=== PATIENT | male | born 1990 | race Hispanic/Latino ===

== ENCOUNTER → 2017-08-19 | Outpatient (CLI) | payer MEDICAID | END | disposition home or self-care (01) | LOC: RAH 10:44 | PROVIDERS: ATTEND Physical Medicine & Rehabilitation | DX: M41.85 Other forms of scoliosis, thoracolumbar region (principal) | CPT/HCPCS: 72082 ==

== ENCOUNTER → 2019-03-19 | Outpatient (CLI) | payer MEDICAID | END | disposition home or self-care (01) | LOC: OIH 11:25 | PROVIDERS: ATTEND Family Medicine | DX: K59.00 Constipation, unspecified (principal); Z93.1 Gastrostomy status | CPT/HCPCS: 74018 ==

== ENCOUNTER → 2022-09-26 | Outpatient (CLI) | payer MEDICAID | END | disposition home or self-care (01) | LOC: WHH 10:06 | PROVIDERS: ATTEND Nurse Practitioner Family | DX: L02.211 Cutaneous abscess of abdominal wall (principal); L03.319 Cellulitis of trunk, unspecified; L92.9 Granulomatous disorder of the skin and subcutaneous tissue, unspecified; G80.9 Cerebral palsy, unspecified; Z79.899 Other long term (current) drug therapy | CPT/HCPCS: 87070; 87077; 87186; 99205; A6248; A4450; A6260 ==

== ENCOUNTER → 2022-10-08 | Outpatient (CLI) | payer MEDICAID | END | disposition home or self-care (01) | LOC: WHH 10:47 | PROVIDERS: ATTEND Nurse Practitioner Family | DX: L02.211 Cutaneous abscess of abdominal wall (principal); L03.319 Cellulitis of trunk, unspecified; L92.9 Granulomatous disorder of the skin and subcutaneous tissue, unspecified; G80.9 Cerebral palsy, unspecified; Z79.899 Other long term (current) drug therapy | CPT/HCPCS: 99214 ==

== ENCOUNTER → 2022-10-22 | Outpatient (CLI) | payer MEDICAID | END | disposition home or self-care (01) | LOC: WHH 10:36 | PROVIDERS: ATTEND Nurse Practitioner Family | DX: L02.211 Cutaneous abscess of abdominal wall (principal); L03.319 Cellulitis of trunk, unspecified; L92.9 Granulomatous disorder of the skin and subcutaneous tissue, unspecified; G80.9 Cerebral palsy, unspecified; Z79.899 Other long term (current) drug therapy | CPT/HCPCS: 99214 ==

== ENCOUNTER → 2022-10-31 | Outpatient (CLI) | payer MEDICAID | END | disposition home or self-care (01) | LOC: RAH 10:36 | PROVIDERS: ATTEND Nurse Practitioner Family | DX: L02.211 Cutaneous abscess of abdominal wall (principal) | CPT/HCPCS: 76705 ==

== ENCOUNTER → 2022-11-12 | Outpatient (CLI) | payer MEDICAID | END | disposition home or self-care (01) | LOC: WHH 10:57 | PROVIDERS: ATTEND Nurse Practitioner Family | DX: L02.211 Cutaneous abscess of abdominal wall (principal); L03.319 Cellulitis of trunk, unspecified; L92.9 Granulomatous disorder of the skin and subcutaneous tissue, unspecified; G80.9 Cerebral palsy, unspecified; Z79.899 Other long term (current) drug therapy | CPT/HCPCS: 99214; A6260 ==

== ENCOUNTER → 2022-11-26 | Outpatient (CLI) | payer MEDICAID | END | disposition home or self-care (01) | LOC: WHH 10:39 | PROVIDERS: ATTEND Nurse Practitioner Family | DX: L02.211 Cutaneous abscess of abdominal wall (principal); L03.319 Cellulitis of trunk, unspecified; L92.9 Granulomatous disorder of the skin and subcutaneous tissue, unspecified; G80.9 Cerebral palsy, unspecified; Z79.899 Other long term (current) drug therapy | CPT/HCPCS: 87070; 99214; A6248 ==

== ENCOUNTER → 2023-01-06 | Outpatient (CLI) | payer MEDICAID | END | disposition home or self-care (01) | LOC: WHH 10:54 | PROVIDERS: ATTEND Nurse Practitioner Family | DX: L02.211 Cutaneous abscess of abdominal wall (principal); L03.319 Cellulitis of trunk, unspecified; L92.9 Granulomatous disorder of the skin and subcutaneous tissue, unspecified; G80.9 Cerebral palsy, unspecified; Z79.899 Other long term (current) drug therapy | CPT/HCPCS: 99214 ==

== ENCOUNTER → 2023-02-03 | Outpatient (CLI) | payer MEDICAID | END | disposition home or self-care (01) | LOC: WHH 11:04 | PROVIDERS: ATTEND Nurse Practitioner Family | DX: L02.211 Cutaneous abscess of abdominal wall (principal); L03.319 Cellulitis of trunk, unspecified; L92.9 Granulomatous disorder of the skin and subcutaneous tissue, unspecified; G80.9 Cerebral palsy, unspecified; Z79.899 Other long term (current) drug therapy | CPT/HCPCS: 99214; A6248 ==